=== PATIENT | female | born 1955 | race Caucasian/White ===

== ENCOUNTER → 2016-04-21 | Outpatient (CLI) | payer OTHER ==
[~2016-04-21] MED LIST: ACTIVELLA 0.5-1 EACH ORAL; ACTONEL35 MG ORAL; ACTONEL5 MG ORAL; ALBUTEROL2.5 MG/3 M HHN; CALCIUM + D SO1 EACH PO; DAILY VITAMIN1 EAC4 ORAL; DULERA 200 MCG/13 GM IH; DYMISTA NASAL S23 GM NS; NEXIUM40 MG ORAL; PREDNISONE10 MG ORAL; PROBIOTIC COMP1 EACH PO; QVAR7.3 G2 IH; SINGULAIR10 MG ORAL; XOLAIR150 MG SQ
--- NOTE | 2016-04-21 18:28 | Diagnostic Imaging Report ---
Indication: COUGH Technique: 2 views of the chest Comparison: none. Findings: Lungs and pleural spaces are clear. Heart size is normal. There are degenerative changes of the thoracic spine. No significant interim change Impression: No acute process
== END | disposition home or self-care (01) ==
LOC: RAD 12:03
DX: R05 Cough (principal)
CPT/HCPCS: 71020

== ENCOUNTER 2018-04-26 11:07 | Inpatient (IN) | payer OTHER ==
[~2018-04-26] VITALS: Ht 162.6 cm; Wt 76.7 kg
[2018-04-26] MEDS ORDERED: PREDNISONE20 MG ORAL (14:44)
[2018-04-26] MEDS ORDERED: Pseudoephedrine 30mg tab ORAL PRN (15:15)
--- NOTE | 2018-04-26 16:30 | NUR ---
NURSE NOTES: Patient admitted to the as a direct admission, accompanied by her spouse Zan, ambulatory with steady gait. Breathing observed to be unlabored on room air, no coughing. Patient reported white sputum that she coughs up intermittently. Alert and orientedx4, belongings reviewed with the patient. Water and blankets provided per patient's request. Call light placed within reach, will continue to monitor.
[2018-04-26] MEDS: cefTRIAXone 1 GM in D5W 55 ML IVPB SCH (18:02)
--- NOTE | 2018-04-26 19:14 | NUR ---
HAND-OFF: Report given to Fawad HONG.
[2018-04-26 20:00] VITALS: BP 126/69
--- NOTE | 2018-04-26 20:00 | NUR ---
NURSE NOTES: Received patient awake,alert,verbal,resting in bed,no SOB noted.
[2018-04-26] MEDS: Solu-MEDROL 125mg Inj IVP SCH (21:29)
[2018-04-26] MEDS: Heparin 5000 units/ml inj SUBQ SCH (21:29)
[2018-04-27] VITALS (7 sets, daily range): BP systolic 106–128; BP diastolic 64–88
[2018-04-27] MEDS: Solu-MEDROL 125mg Inj IVP SCH ×3 (05:25→20:49)
--- NOTE | 2018-04-27 07:00 | NUR ---
HAND-OFF: Report given to HAL Sellers.
--- NOTE | 2018-04-27 07:34 | NUR ---
NURSE NOTES: Patient received in stable condition, eating breakfast in bed. Alert and oriented, breathing unlabored. Denies pain or respiratory distress at this time. IV site on L wrist patent and intact. Bed locked in low position, nasal cannula by bedside. Call light placed within reach, will continue to monitor.
--- NOTE | 2018-04-27 08:46 | NUR ---
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
[2018-04-27] MEDS: Qvar 40mcg Inhaler 6.8 gm INH SCH ×2 (08:49→20:16)
[2018-04-27] MEDS: Heparin 5000 units/ml inj SUBQ SCH ×2 (09:00→20:50)
[2018-04-27] MEDS: Albuterol/Ipratropium 3ml neb HHN PRN (09:02)
[2018-04-27] MEDS: Albuterol ud Inhalation HHN SCH ×4 (11:36→23:23)
--- NOTE | 2018-04-27 12:20 | NUR ---
*-* INSURANCE *-* ALL CLINICALS , REVIEW HAVE BEEN FAXED TO: [facility] F:[phone]
--- NOTE | 2018-04-27 12:47 | Diagnostic Imaging Report ---
Clinical Indication: Shortness of breath, COPD and asthma Technique: Spiral acquisitions obtained through the chest. No IV contrast utilized, . Multiplanar reconstructions generated. Total dose length product 840.36 mGycm. CTDIvol(s) 24.46 mGy. Dose reduction achieved using automated exposure control Comparison: 11/23/2015 Findings: A band of atelectasis or scarring is seen in the superior segment of the right lower lobe. Scarring or atelectasis is seen in the posterior medial right lower lobe at the base. Minimal atelectatic changes are seen at the left lung base and in the inferior lingula. Single small focus of bronchiectasis is seen in the suprahilar left upper lobe. No infiltrates, effusions, masses, or nodules are demonstrated. The esophagus is unremarkable. The included portion of the thyroid is unremarkable. No mediastinal or hilar mass or adenopathy demonstrated. Normal heart size. No pericardial effusion. No chest wall or axillary mass or adenopathy demonstrated. The included upper abdominal anatomy again demonstrates multiple hepatic cysts, also evident previously. Impression: Areas of atelectasis or scarring bilaterally. Otherwise unremarkable lungs. No other acute or significant abnormality Incidental finding of multiple hepatic cysts The CT scanner at [facility] is accredited by the [employer] and the scans are performed using protocols designed to limit radiation exposure to as low as reasonably achievable to attain images of sufficient resolution adequate for diagnostic evaluation.
--- NOTE | 2018-04-27 15:45 | History and Physical Report ---
DATE OF ADMISSION: 04/26/2018 REASON FOR ADMISSION: Asthma exacerbation. HISTORY OF PRESENT ILLNESS: The patient is a 62-year-old female who has had worsening asthma symptoms over the past 2 weeks. The patient notes chest tightness, difficulty with breathing as well as sputum production. The patient has been in and out from my office receiving antibiotics as well as now high-dose steroids. The patient in fact did receive IV steroids at home as well with some improvement, but inadequate relief. The patient now being admitted for further optimization and more intensive therapy due to failed outpatient medical management. PAST MEDICAL HISTORY: Notable for severe persistent asthma, arthritis, history of chronic rhinitis, history of reflux disease. MEDICATIONS: Reviewed. ALLERGIES: Reviewed. SOCIAL HISTORY: She does not smoke or drink. She is . She is working. PHYSICAL EXAMINATION: GENERAL: A well-developed female, comfortable, but somewhat short of breath with obstructive cough. VITAL SIGNS: Otherwise stable. Blood pressure 112/69, pulse 77, respiratory rate 17, temperature 98.1. HEENT: Negative. NECK: Supple. LUNGS: With reduced air entry. CARDIAC: S1, S2. Regular rate and rhythm. ABDOMEN: Soft and nontender. EXTREMITIES: No edema. IMPRESSION: Asthma exacerbation, shortness of breath, rule out parenchymal disease. RECOMMENDATIONS: Supportive care. IV Solu-Medrol. IV antibiotics. CT chest to evaluate further. Nebulized therapy and discharge once the patient improved and breathing more easily. John Berger M.D. DR: ALMA DELIA JOB#: [id number] CC:
[2018-04-27] MEDS: cefTRIAXone 1 GM in D5W 55 ML IVPB SCH (18:01)
--- NOTE | 2018-04-27 19:00 | NUR ---
HAND-OFF: Report given to Fawad HONG.
--- NOTE | 2018-04-27 19:39 | NUR ---
NURSE NOTES: Received patient asleep,comfortable,no SOB noted.
[2018-04-28 04:00] VITALS: BP 103/63
[2018-04-28] MEDS: Solu-MEDROL 125mg Inj IVP SCH ×4 (06:03→23:58)
--- NOTE | 2018-04-28 07:23 | NUR ---
HAND-OFF: Report given to Aj Jarrell RN.
--- NOTE | 2018-04-28 07:28 | NUR ---
NURSE NOTES: Received patient from Sharyn RN, patient is resting in bed, no distress noted, bed is locked and in lowest position, call light within reach, will continue to monitor.
[2018-04-28 08:00] VITALS: BP 132/74
[2018-04-28] MEDS: Albuterol ud Inhalation HHN SCH ×6 (08:13→22:57)
[2018-04-28] MEDS: Qvar 40mcg Inhaler 6.8 gm INH SCH ×2 (08:22→19:08)
[2018-04-28] MEDS: Heparin 5000 units/ml inj SUBQ SCH ×2 (08:35→20:52)
--- NOTE | 2018-04-28 10:26 | General Progress Note ---
Assessment/Plan Assessment/Plan IMPRESSION: Asthma exacerbation, shortness of breath, rule out parenchymal disease. PLAN respiratory care increase steroids albuterol prn continue same impression, plan, and exam edited and reviewed in detail care discussed with RN Subjective Allergies: Coded Allergies: No Known Allergies (Verified Allergy, Unknown, 03/30/09) Subjective still with sob mucous plugs Objective Last 24 Hour Vital Signs Date Time Temp Pulse Resp B/P (MAP) Pulse Ox O2 Delivery O2 Flow Rate FiO2 04/28/18 08:24 102 20 99 Nasal Cannula 2.0 28 04/28/18 08:14 102 20 97 Nasal Cannula 2.0 28 04/28/18 08:14 110 22 97 Nasal Cannula 2.0 28 04/28/18 08:00 97.3 99 17 132/74 (93) 95 04/28/18 08:00 Nasal Cannula 2.0 Nasal Cannula 2.0 04/28/18 04:00 97.5 88 17 103/63 (76) 98 04/28/18 03:26 Nasal Cannula 2.0 28 04/28/18 03:26 Nasal Cannula 2.0 28 04/27/18 23:48 98.1 104 17 121/68 (85) 93 04/27/18 23:33 100 20 97 Nasal Cannula 2.0 28 04/27/18 23:23 97 20 93 Nasal Cannula 2.0 28 04/27/18 20:26 105 20 97 Nasal Cannula 2.0 28 04/27/18 20:19 99 16 95 Nasal Cannula 2.0 28 04/27/18 20:16 99 20 95 Nasal Cannula 2.0 28 04/27/18 20:16 99 18 95 Nasal Cannula 2.0 28 04/27/18 20:10 Nasal Cannula 2.0 Nasal Cannula 2.0 04/27/18 20:00 98.2 110 19 119/71 (87) 92 04/27/18 16:00 98.0 100 17 128/74 (92) 94 04/27/18 15:37 93 18 97 Nasal Cannula 2.0 28 04/27/18 15:26 100 20 93 Nasal Cannula 2.0 28 04/27/18 12:00 97.7 104 16 113/88 (96) 95 04/27/18 11:50 92 18 97 Nasal Cannula 2.0 28 04/27/18 11:38 89 20 96 Nasal Cannula 2.0 28 Intake and Output 04/27/18 04/28/18 18:59 06:59 Intake Total 720 ml Balance 720 ml Intake Oral 720 ml # Voids 5 3 Height (Feet): 5 Height (Inches): 4.00 Weight (Pounds): 169 Objective GENERAL: A well-developed female, comfortable NAD HEENT: Negative. NECK: Supple. LUNGS: With reduced air entry. no wheeze CARDIAC: S1, S2. Regular rate and rhythm. ABDOMEN: Soft and nontender. EXTREMITIES: No edema. John Berger MD Apr 28, 2018 10:26
[2018-04-28 11:41] LABS: HEMATOCRIT 42.2 % (37.0-47.0); HEMOGLOBIN 13.9 G/DL (12.0-16.0); MEAN CORPUSCULAR VOLUME 87 FL (80-99); PLATELET COUNT 241 K/UL (150-450); RED BLOOD COUNT 4.85 M/UL (4.20-5.40); RED CELL DISTRIBUTION WIDTH 12.1 % (11.6-14.8); WHITE BLOOD COUNT 17.3 K/UL (4.8-10.8)
[2018-04-28 11:50] LABS: ANION GAP 8 mmol/L (5-15); BLOOD UREA NITROGEN 21 mg/dL (7-18); CALCIUM 9.4 MG/DL (8.5-10.1); CARBON DIOXIDE 28 MMOL/L (21-32); CHLORIDE 103 MMOL/L (98-107); POTASSIUM 4.4 MMOL/L (3.5-5.1); SODIUM 139 MMOL/L (136-145)
[2018-04-28 12:00] VITALS: BP 140/84
[2018-04-28 16:00] VITALS: BP 112/69
--- NOTE | 2018-04-28 16:00 | NUR ---
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 IS:HEPARIN SUBQ SOLU-MEDROL 60mg BECLOMETHASONE DIPROPIONATE 1puff ALBUTEROL 2.5mg MED/SURG STATUS
[2018-04-28] MEDS: cefTRIAXone 1 GM in D5W 55 ML IVPB SCH (18:43)
[2018-04-28] MEDS: Albuterol/Ipratropium 3ml neb HHN PRN (19:08)
--- NOTE | 2018-04-28 19:33 | NUR ---
HAND-OFF: Report given to Sharyn HONG.
[2018-04-28 20:00] VITALS: BP 121/67
--- NOTE | 2018-04-28 20:09 | NUR ---
NURSE NOTES: Received patient awake,alert,verbal,resting in bed,comfortable.
[2018-04-29] VITALS: BP 114/64
[2018-04-29] MEDS: Albuterol ud Inhalation HHN SCH ×3 (03:02→10:58)
[2018-04-29 04:00] VITALS: BP 107/57
[2018-04-29] MEDS: Solu-MEDROL 125mg Inj IVP SCH ×2 (05:32→12:23)
--- NOTE | 2018-04-29 07:03 | NUR ---
HAND-OFF: Report given to Seferino Keen RN.
[2018-04-29] MEDS: Qvar 40mcg Inhaler 6.8 gm INH SCH (08:08)
--- NOTE | 2018-04-29 08:10 | General Progress Note ---
Assessment/Plan Assessment/Plan IMPRESSION: Asthma exacerbation, shortness of breath, rule out parenchymal disease. PLAN respiratory care IV steroids albuterol prn continue same impression, plan, and exam edited and reviewed in detail care discussed with RN Subjective Allergies: Coded Allergies: No Known Allergies (Verified Allergy, Unknown, 03/30/09) Subjective some sob mucous plugs Objective Last 24 Hour Vital Signs Date Time Temp Pulse Resp B/P (MAP) Pulse Ox O2 Delivery O2 Flow Rate FiO2 04/29/18 04:00 98.3 89 16 107/57 (74) 95 04/29/18 03:17 80 16 98 Nasal Cannula 2.0 28 04/29/18 03:04 84 18 96 Nasal Cannula 2.0 28 04/29/18 00:00 98.1 91 18 114/64 (81) 98 04/28/18 23:07 80 16 98 Nasal Cannula 2.0 28 04/28/18 22:58 82 18 95 Nasal Cannula 2.0 28 04/28/18 20:38 Nasal Cannula 2.0 Nasal Cannula 2.0 04/28/18 20:00 98.0 97 18 121/67 (85) 95 04/28/18 19:25 92 18 97 Nasal Cannula 2.0 28 04/28/18 19:25 92 18 97 Nasal Cannula 2.0 28 04/28/18 19:24 92 18 95 Nasal Cannula 2.0 28 04/28/18 19:20 95 Nasal Cannula 2.0 28 04/28/18 19:20 92 18 95 Nasal Cannula 2.0 28 04/28/18 19:19 Nasal Cannula 2.0 28 04/28/18 19:10 90 18 94 Nasal Cannula 2.0 28 04/28/18 16:00 99.3 84 18 112/69 (83) 95 04/28/18 15:37 97 18 96 Nasal Cannula 2.0 28 04/28/18 15:24 91 18 93 Nasal Cannula 2.0 28 04/28/18 12:07 94 18 97 Nasal Cannula 2.0 28 04/28/18 12:00 97.7 96 16 140/84 (102) 97 04/28/18 11:57 88 18 96 Nasal Cannula 2.0 28 04/28/18 08:24 102 20 99 Nasal Cannula 2.0 28 04/28/18 08:24 102 20 97 Nasal Cannula 2.0 28 04/28/18 08:22 102 18 97 Nasal Cannula 2.0 28 04/28/18 08:14 110 22 97 Nasal Cannula 2.0 28 Intake and Output 04/28/18 04/29/18 19:00 07:00 # Voids 3 Laboratory Tests 04/28/18 10:50: White Blood Count 17.3H, Red Blood Count 4.85, Hemoglobin 13.9, Hematocrit 42.2 , Mean Corpuscular Volume 87, Mean Corpuscular Hemoglobin 28.7, Mean Corpuscular Hemoglobin Concent 33.0, Red Cell Distribution Width 12.1, Platelet Count 241, Mean Platelet Volume 8.0, Neutrophils (%) (Auto) , Lymphocytes (%) ( Auto) , Monocytes (%) (Auto) , Eosinophils (%) (Auto) , Basophils (%) (Auto) , Differential Total Cells Counted 100, Neutrophils % (Manual) 88H, Lymphocytes % (Manual) 4L, Monocytes % (Manual) 8, Eosinophils % (Manual) 0, Basophils % ( Manual) 0, Band Neutrophils 0, Platelet Estimate Adequate, Platelet Morphology Normal, Red Blood Cell Morphology Normal, Sodium Level 139, Potassium Level 4.4 , Chloride Level 103, Carbon Dioxide Level 28, Anion Gap 8, Blood Urea Nitrogen 21H, Creatinine 1.0, Estimat Glomerular Filtration Rate 56.2, Glucose Level 110H , Calcium Level 9.4 Height (Feet): 5 Height (Inches): 4.00 Weight (Pounds): 169 Objective GENERAL: A well-developed female, comfortable NAD HEENT: Negative. NECK: Supple. LUNGS: With reduced air entry. no wheeze CARDIAC: S1, S2. Regular rate and rhythm. ABDOMEN: Soft and nontender. EXTREMITIES: No edema. John Berger MD Apr 29, 2018 08:10
[2018-04-29 08:15] VITALS: BP 128/76
[2018-04-29] MEDS: Heparin 5000 units/ml inj SUBQ SCH (08:45)
--- NOTE | 2018-04-29 09:54 | NUR ---
NURSE NOTES: DR CISNEROS AT BEDSIDE TALKING TO PT. PT IN NO APPARENT DISTRESS AT THIS TIME. NC 2L O2. DENIES SOB OR DIZZINESS WHEN AMBULATING. DENIES PAIN AT THIS TIME. PT AXOX4. BED IN LOWEST POSITION WITH BEDSIDE RAILS X2 RAISED. CALL LIGHT WITHIN REACH.
--- NOTE | 2018-04-29 11:52 | NUR ---
*-* INSURANCE *-* ALL CLINICALS , REVIEW HAVE BEEN FAXED TO: [facility] F:[phone]
[2018-04-29 12:00] VITALS: BP 148/82
--- NOTE | 2018-04-29 12:55 | NUR ---
NURSE NOTES: PT EDUCATED ON DISCHARGE PACKET AND MEDICATIONS. PT VERBALIZED UNDERSTANDING. VSS. IV ACCESS DISCONTINUED. ALL BELONGINGS NOTED AND NO MISSING BELONGINGS. PT WAS DISCHARGED IN STABLE CONDITION.
--- NOTE | 2018-04-30 11:30 | Discharge Summary ---
Discharge Summary Discharge Summary _ DATE OF ADMISSION: 04/26/2018 DATE OF DISCHARGE: 04/29/2018 DISCHARGED BY: Dr. Annette Berger [facility] HOSPITAL COURSE: Patient is a 62-year-old female, who had worsened asthma symptoms for the past 2 weeks. The patient had chest tightness, difficulty breathing as well as sputum production. Patient has been in and out the outpatient clinic and received antibiotics as well as high-dose steroids. She had some improvement, but inadequate relief. She was then admitted to the hospital for further optimization and more intensive therapy due to failed outpatient medical management. She has medical history significant for severe persistent asthma, arthritis, chronic rhinitis and history of reflux disease. She was given supportive care. She was given nebulizer therapy. She was placed on IV Solu-Medrol q 8. She was started on IV Ceftriaxone. She still had SOB with mucous plugs. Steroids were increased to q 6 hours. She was given Qvar. CT of the chest showed areas of atelectasis or scarring bilaterally, otherwise, unremarkable. She was breathing better and had improvement in symptoms. She was eventually discharged home to continue p.o. steroids. FINAL DIAGNOSES: Acute asthma exacerbation Failed outpatient therapy DISPOSITION: Patient was discharged home. DISCHARGE MEDICATIONS: Refer to Discharge Medication List. DISCHARGE INSTRUCTIONS: Follow-up in a week. I have been assigned to complete a discharge summary on this account, I was not involved with the patient's management. Christine Pittman NP Apr 30, 2018 11:30
== END 2018-04-29 13:00 | disposition home or self-care (01) | DRG 203 ==
LOC: 4E 13:26
DX: J45.901 Unspecified asthma with (acute) exacerbation (principal); M19.90 Unspecified osteoarthritis, unspecified site; K21.9 Gastro-esophageal reflux disease without esophagitis
CPT/HCPCS: 36415; 71250; 80048; 85007; 85025; 94640; 94664; 94760; J7620

== ENCOUNTER → 2018-05-07 | Outpatient (CLI) | payer OTHER ==
[~2018-05-07] MED LIST changes: +PREDNISONE20 MG ORAL
--- NOTE | 2018-05-07 11:04 | Diagnostic Imaging Report ---
Indications: Shortness of breath Technique: IV administration 5.5 mCi 99m technetium macroaggregated albumin. Images obtained over the lungs in multiple projections. Previously, patient inhaled 40 mCi aerosolized 99M technetium DTPA. Images obtained over the lungs in multiple projections Comparison: None. Findings: There is slight heterogeneity to pulmonary tracer distribution, but no segmental or subsegmental perfusion defects are demonstrated. No perfusion/aerosol mismatch demonstrated. Impression: Findings deemed low probability for pulmonary embolus
--- NOTE | 2018-05-07 12:22 | Diagnostic Imaging Report ---
Indication: Cough Technique: 2 views of the chest Comparison: 04/21/2016 Findings: Lungs and pleural spaces are clear. The heart size is normal. Degenerative spondylosis changes of the thoracic spine are again demonstrated. The aorta is tortuous. No significant interim change. Impression: No acute process Degenerative spondylosis
== END | disposition home or self-care (01) ==
LOC: RAD 09:33
DX: R05 Cough (principal); R06.02 Shortness of breath; M47.9 Spondylosis, unspecified
CPT/HCPCS: 71046; 78579; 78580; A4641; A9503

== ENCOUNTER 2019-01-29 15:23 | Inpatient (IN) | payer OTHER ==
[~2019-01-29] VITALS: Ht 162.6 cm; Wt 67.1 kg
[2019-01-29] MEDS ORDERED: Albuterol ud Inhalation HHN PRN (17:15)
[2019-01-29 18:05] LABS: HEMATOCRIT 42.1 % (37.0-47.0); MEAN CORPUSCULAR VOLUME 80 FL (80-99); PLATELET COUNT 250 K/UL (150-450); RED BLOOD COUNT 5.29 M/UL (4.20-5.40); RED CELL DISTRIBUTION WIDTH 9.9 % (11.6-14.8)
[2019-01-29 18:07] LABS: ANION GAP 10 mmol/L (5-15); BLOOD UREA NITROGEN 16 mg/dL (7-18); CALCIUM 9.3 MG/DL (8.5-10.1); CARBON DIOXIDE 26 MMOL/L (21-32); CHLORIDE 107 MMOL/L (98-107); CREATININE 0.9 MG/DL (0.55-1.30); POTASSIUM 3.7 MMOL/L (3.5-5.1); SODIUM 143 MMOL/L (136-145)
[2019-01-29] MEDS: cefTRIAXone 1 GM in D5W 55 ML IVPB SCH (18:54)
[2019-01-29] MEDS: Albuterol ud Inhalation HHN SCH ×2 (19:24→23:12)
[2019-01-29] MEDS: Solu-MEDROL 125mg Inj IVP SCH (20:52)
[2019-01-29 20:59] VITALS: BP 104/65
[2019-01-30] VITALS (7 sets, daily range): BP systolic 91–120; BP diastolic 64–78
[2019-01-30] MEDS: Albuterol ud Inhalation HHN SCH ×6 (02:52→23:27)
[2019-01-30] MEDS: Lactobacillus-GG tablet ORAL SCH (08:59)
[2019-01-30] MEDS: Montelukast 10mg tablet ORAL SCH (08:59)
[2019-01-30] MEDS: Solu-MEDROL 125mg Inj IVP SCH ×2 (08:59→20:44)
[2019-01-30] MEDS: QVAR 80mcg Inh - 8.7gm INH SCH ×2 (09:15→19:06)
--- NOTE | 2019-01-30 10:24 | Diagnostic Imaging Report ---
EXAM: XR Chest, 1 View CLINICAL HISTORY: ASTHMA TECHNIQUE: Frontal view of the chest. COMPARISON: Chest radiograph on 05/07/2018 FINDINGS: Hardware: None. Lungs/pleura: Left basilar opacity likely represents atelectasis. No focal consolidation. No pleural effusion or pneumothorax. Heart/mediastinum: Normal. No cardiomegaly. Soft tissues: Unremarkable. Bones: No acute fracture. Degenerative changes of the spine. Upper abdomen: Normal. IMPRESSION: Left basilar opacity likely represents atelectasis. No focal consolidation.
--- NOTE | 2019-01-30 15:15 | History and Physical Report ---
DATE OF ADMISSION: 01/29/2019 REASON FOR ADMISSION: Asthma exacerbation. HISTORY OF PRESENT ILLNESS: This is a 63-year-old female, well known to me with fairly brittle asthma. The patient over the past 2 weeks has had worsening shortness of breath. The patient has increased her baseline prednisone dosing and called me with worsening chest , difficulty breathing and sputum production. The patient seen and evaluated by me not too long ago and now directly admitted for further care and management. The patient did have a chest x-ray which was essentially negative. The patient does cough and have noted sputum production at present. She is wheezing. She has been very compliant with her therapy. No fevers or chills noted. No ill contacts noted. No recent travel noted. The patient has had prior admissions to the medical center with similar complaints. PAST MEDICAL HISTORY: Notable for asthma severe persistent, history of bronchial thermoplasty in the past, history of irritable bowel syndrome, history of osteoporosis, history of menopause, history of chronic allergies and allergic rhinitis. MEDICATIONS: Reviewed. ALLERGIES: Reviewed. SOCIAL HISTORY: Nonsmoker and nondrinker. She is . She is employed. REVIEW OF SYSTEMS: All 10 points reviewed and otherwise negative. FAMILY HISTORY: Otherwise negative, in regards to history of present illness. PHYSICAL EXAMINATION: GENERAL: A well-developed female, comfortable at present. VITAL SIGNS: Reviewed. Sats 98%, pulse rate 88, blood pressure is stable at 105/68. The patient is afebrile. HEENT: Negative. Extraocular movements are grossly intact. Oropharynx is moist. No thrush. NECK: Supple. No adenopathy. LUNGS: With moderate breath sounds. Occasional wheezing. CARDIAC: S1 and S2. Regular rate and rhythm without murmurs, rubs, gallops. ABDOMEN: Soft, nontender, nondistended. EXTREMITIES: No cyanosis, clubbing, or edema. NEUROLOGIC: Grossly nonfocal. LABORATORY DATA: Otherwise reviewed notable for white count of 14. Blood sugar 167 and remainder of the laboratory data are normal. D-dimer is normal. IMPRESSION: 1. Asthma with acute exacerbation. 2. Shortness of breath. 3. Possible acute bronchitis. 4. Mild atelectasis. 5. Allergic rhinitis. RECOMMENDATIONS: Supportive care. IV Solu-Medrol. Empiric antibiotics. Obtain sputum culture. Resume home medications. Taper as able and monitor for change and discharge once the patient improved. Supportive care. Ambulate as able and we will follow clinically for further changes. John Berger M.D. DR: Hector JOB#: [id number] CC:
[2019-01-30] MEDS: cefTRIAXone 1 GM in D5W 55 ML IVPB SCH (17:40)
[2019-01-31] MEDS: Albuterol ud Inhalation HHN SCH ×2 (03:10→07:25)
[2019-01-31 03:50] VITALS: BP 96/62
[2019-01-31] MEDS ORDERED: RISEDRONATE 35 MG ORAL SCH (06:00)
[2019-01-31 08:00] VITALS: BP 119/75
--- NOTE | 2019-01-31 08:27 | General Progress Note ---
Assessment/Plan Assessment/Plan: IMPRESSION: 1. Asthma with acute exacerbation. 2. Shortness of breath. 3. Possible acute bronchitis. 4. Mild atelectasis. 5. Allergic rhinitis. PLAN add Bactrim steroid taper maintain inhalers neb therapy continue same impression, plan, and exam edited and reviewed in detail care discussed with RN Subjective Allergies: Coded Allergies: No Known Allergies (Verified , 03/30/09) Subjective noted results discussed concern for MRSA Objective Last 24 Hour Vital Signs Date Time Temp Pulse Resp B/P (MAP) Pulse Ox O2 Delivery O2 Flow Rate FiO2 01/31/19 08:00 97.9 99 18 119/75 (90) 95 01/31/19 07:31 98 18 98 Room Air 21 98 20 95 01/31/19 07:31 95 Room Air 21 01/31/19 03:50 98.0 100 18 96/62 (73) 96 01/31/19 03:20 100 20 98 Nasal Cannula 2.0 28 01/31/19 03:10 96 20 94 Room Air 21 01/30/19 23:44 97.7 106 18 110/67 (81) 96 01/30/19 23:37 96 20 97 Room Air 21 01/30/19 23:27 91 20 94 Room Air 21 01/30/19 21:01 Nasal Cannula 2.0 01/30/19 19:56 98.4 101 18 108/67 (81) 93 01/30/19 19:20 98 20 97 Room Air 21 01/30/19 19:10 96 20 95 Room Air 21 01/30/19 19:08 94 20 95 Room Air 21 01/30/19 19:06 94 20 95 Room Air 21 01/30/19 19:06 95 Nasal Cannula 2.0 28 01/30/19 16:00 98.2 103 18 120/78 (92) 96 01/30/19 15:13 103 18 97 Nasal Cannula 2.0 28 100 18 93 01/30/19 12:00 99.1 112 18 117/75 (89) 97 01/30/19 10:59 88 16 98 Nasal Cannula 2.0 28 84 16 94 01/30/19 09:40 98.0 01/30/19 09:20 101 18 97 Nasal Cannula 2.0 28 01/30/19 09:18 100 18 97 Nasal Cannula 2.0 28 01/30/19 09:00 Nasal Cannula 2.0 Intake and Output 01/30/19 01/31/19 19:00 07:00 Intake Total 600 ml 480 ml Balance 600 ml 480 ml Intake Oral 600 ml 480 ml # Voids 2 # Bowel Movements 1 Height (Feet): 5 Height (Inches): 4.00 Weight (Pounds): 148 Objective WDWN NAD reduced breath sounds bilaterally with some rhonchi [id number] without MRG NABS nontender no HSM no CCE nonfocal John Berger MD Jan 31, 2019 08:27
[2019-01-31] MEDS: QVAR 80mcg Inh - 8.7gm INH SCH (09:42)
[2019-01-31] MEDS ORDERED: Vancomycin 1 GM in NS 275 ML IVPB SCH (10:00)
[2019-01-31] MEDS: Solu-MEDROL 125mg Inj IVP SCH (10:11)
[2019-01-31] MEDS: Lactobacillus-GG tablet ORAL SCH (10:11)
[2019-01-31] MEDS: Montelukast 10mg tablet ORAL SCH (10:12)
[2019-01-31 12:00] VITALS: BP 119/80
--- NOTE | 2019-02-02 20:04 | Discharge Summary ---
Discharge Summary Discharge Summary _ DATE OF ADMISSION: 01/29/2019 DATE OF DISCHARGE: 01/31/2019 DISCHARGED BY: Dr. Berger REASON FOR ADMISSION: 53 years old female with past medical history of severe persistent asthma, bronchial thermoplasty, irritable bowel syndrome, osteoporosis, chronic allergy , allergic rhinitis, experienced worsening shortness of breath over the last 2 weeks. Patient increased baseline prednisone dosing, however continued to have worsening symptoms with difficulty breathing and cough with sputum production. Patient subsequently directly admitted for further inpatient management. HOSPITAL COURSE: Patient admitted to medical surgical floor. Chest x-ray revealed left basilar opacity, likely representing atelectasis. No focal consolidation. Patient started on IV Solu-Medrol and empiric antibiotic. Sputum culture revealed MRSA. Supplemental oxygen provided and titrated to keep pulse oximetry above 92%. Pulmonary toilet with bronchodilator provided [id number] and as needed. Inhalers resumed. Singulair continued. GI prophylaxis provided. Home medication resumed. Supportive care provided. Ambulation was encouraged. With above treatment patient was clinically improving. Steroids tapered. Prescription for Bactrim provided. Patient clinically stabilized and was ready for discharge home. FINAL DIAGNOSES: Asthma with acute exacerbation Shortness of breath Possible acute bronchitis Mild atelectasis Allergic rhinitis DISCHARGE MEDICATIONS: See Medication Reconciliation list. DISCHARGE INSTRUCTIONS: Patient was discharged home. Follow-up with the test designer in 1 week. I have been assigned to dictate discharge summary for this account. I was not involved in the patient's management. Arti Roach NP Feb 02, 2019 20:04
== END 2019-01-31 13:06 | disposition home or self-care (01) | DRG 202 ==
LOC: 3E 15:27
DX: J45.901 Unspecified asthma with (acute) exacerbation (principal); J98.11 Atelectasis; J20.9 Acute bronchitis, unspecified; K58.9 Irritable bowel syndrome, unspecified
CPT/HCPCS: 36415; 71045; 80048; 85007; 85025; 85379; 87070; 87181; 87205; 94640; 94664